=== PATIENT | female | born 1945 | race Two or more races ===

== ENCOUNTER 2019-08-28 09:01 | Inpatient (IN) | payer OTHER, MEDICAID ==
[2019-08-28] VITALS (38 sets, daily range): BP systolic 93–116; BP diastolic 49–82
[~2019-08-28] VITALS: Ht 152.4 cm; Wt 61.7 kg
[~2019-08-28 09:01] MED LIST: AMLO10TA80 PO; HYDROXYCHLOROQUINE PO; WARF2TAB57 PO; breo INH; levothyroxine PO; metoprolol PO
[2019-08-28] MEDS ORDERED: SODIUM CHLORIDE 0.9% 1,000 ML IV ONE (09:43)
[2019-08-28 09:51] LABS: HEMATOCRIT. 32.7 % (36.0-48.0); HEMOGLOBIN. 10.7 g/dL (12.0-16.0); MEAN CORPUSCULAR HEMOGLOBIN 31.2 pg (28.0-32.0); MEAN CORPUSCULAR VOLUME 95.1 fL (81.0-99.0); MEAN PLATELET VOLUME 8.3 fl (7.4-10.4); PLATELET 224 x1000/uL (130-400); RED BLOOD CELL COUNT 3.44 mill/uL (4.2-5.4); RED CELL DISTRIBUTION WIDTH 16.1 % (11.6-14.6)
[2019-08-28 10:26] LABS: PLATELET ESTIMATE NORMAL
[2019-08-28 10:29] LABS: CHLORIDE 97 mEq/L (98-107)
[2019-08-28 10:45] LABS: INR > 10.0
[2019-08-28] MEDS ORDERED: DILTIAZEM HCL 5MG/ML 5ML VIAL IV ONE (10:45)
[2019-08-28] MEDS ORDERED: DILTIAZEM HCL 120MG CAPSULE CD 24HR PO ONE (10:45)
[2019-08-28] MEDS ORDERED: ASPIRIN 81MG TABLET PO ONE (11:00)
[2019-08-28] MEDS ORDERED: LORAZEPAM 0.5MG TABLET PO PRN (11:30)
[2019-08-28] MEDS ORDERED: DILTIAZEM HCL 125 MG in DEXT 5% WATER 100 ML IV PRN (11:30)
[2019-08-28] MEDS ORDERED: ONDANSETRON HCL 4MG/2ML INJ IV PRN (11:30)
[2019-08-28] MEDS ORDERED: GUAIFENESIN 200MG/10ML SUGAR FREE UDC PO PRN (11:30)
[2019-08-28] MEDS ORDERED: DOCUSATE SODIUM 100MG CAPSULE PO PRN (11:30)
[2019-08-28] MEDS ORDERED: ACETAMINOPHEN 650MG SUPP PR PRN (11:30)
[2019-08-28] MEDS ORDERED: MAGNESIUM/ALUMINUM HYDROXIDE/SIMETHICONE 30ML UDC PO PRN (11:30)
[2019-08-28] MEDS ORDERED: CLONIDINE 0.1MG TABLET PO PRN (11:30)
[2019-08-28] MEDS ORDERED: ACETAMINOPHEN 325MG TABLET PO PRN (11:30)
[2019-08-28] MEDS ORDERED: PIPERACILLIN/TAZOBACTAM 2.25 G in DEXTROSE 5% WATER 50 ML IV SCH (12:00)
[2019-08-28] MEDS ORDERED: POTASSIUM CHLORIDE INJ 40 MEQ in DEXT 5% WATER 250 ML IV NR (12:00)
[2019-08-28 12:22] LABS: CLARITY URINE CLOUDY (CLEAR); COLOR URINE DARK YELLOW (YELLOW); KETONES URINE TRACE (NEGATIVE); LEUKOCYTE ESTERASE URINE 2+ (NEGATIVE); NITRITE URINE NEGATIVE (NEGATIVE); OCCULT BLOOD URINE NEGATIVE (NEGATIVE); PROTEIN URINE 2+ (NEGATIVE); SPECIFIC GRAVITY URINE 1.024 (1.005-1.030)
[2019-08-28] MEDS ORDERED: PHENYLEPHRINE 40 MG in DEXT 5% WATER 246 ML IV PRN (12:30)
[2019-08-28 12:41] LABS: *AMPHETAMINES SCREEN URINE NEGATIVE (NEGATIVE); *BARBITURATES SCREEN URINE NEGATIVE (NEGATIVE)
[2019-08-28 12:42] LABS: CANNABINOID URINE SCREEN NEGATIVE (NEGATIVE); METHADONE URINE SCREEN NEGATIVE (NEGATIVE); OPIATES URINE SCREEN NEGATIVE (NEGATIVE); PHENCYCLIDINE URINE SCREEN NEGATIVE (NEGATIVE)
[2019-08-28 12:44] LABS: *BENZODIAZEPINES SCREEN URINE NEGATIVE (NEGATIVE)
[2019-08-28 12:45] LABS: *COCAINE SCREEN URINE NEGATIVE (NEGATIVE)
[2019-08-28 13:14] LABS: INR > 10.0
[2019-08-28] MEDS ORDERED: PHYTONADIONE 10MG/ML AMP SUBCUT NR (13:15)
[2019-08-28] MEDS: PHENYLEPHRINE 40 MG in DEXT 5% WATER 246 ML IV PRN (13:24)
[2019-08-28 14:42] LABS: CREATINE KINASE 72 IU/L (26-192)
[2019-08-28 14:43] LABS: CREATINE KINASE MB FRACTION < 1.0 ng/mL (0.5-3.6)
[2019-08-28] MEDS ORDERED: VANCOMYCIN 1 G PREMIX 200 ML IV SCH (15:00)
[2019-08-28 17:13] LABS: BG BASE EXCESS -1.2 mmol/L (-2.0-2.0); BG CARBOXYHEMOGLOBIN 0.3 % (0.5-1.5); BG DEOXYHEMOGLOBIN 2.8 % (0.0-5.0); BG FRACTION INSPIRED OXYGEN 28; BG HCO3 ACT 22.5 mmol/L (22.0-26.0); BG METHEMOGLOBIN 0.8 % (0.0-1.5); BG OXYGEN SATURATION 97.2 % (92.0-98.5); BG OXYHEMOGLOBIN 96.1 % (94.0-97.0); BG PH 7.438 (7.350-7.450); BG PO2 97.3 mmHg (75.0-100.0); BG SAMPLE SITE RIGHT BRACHIAL; BG TOTAL HEMOGLOBIN 11.7 g/dL (12.0-18.0); BG VENT MODE NASAL CANNULA
[2019-08-28] MEDS: PIPERACILLIN/TAZOBACTAM 2.25 G in DEXTROSE 5% WATER 50 ML IV SCH (20:54)
[2019-08-28 22:09] LABS: CREATINE KINASE MB FRACTION 2.6 ng/mL (0.5-3.6)
[2019-08-28 22:48] LABS: INR 6.2
[2019-08-29] VITALS (99 sets, daily range): BP systolic 71–119; BP diastolic 24–79
[2019-08-29] MEDS: PIPERACILLIN/TAZOBACTAM 2.25 G in DEXTROSE 5% WATER 50 ML IV SCH ×3 (03:55→20:37)
[2019-08-29] MEDS ORDERED: MIDODRINE HCL 2.5MG TABLET PO SCH (04:45)
[2019-08-29 05:40] LABS: HEMATOCRIT. 32.7 % (36.0-48.0); HEMOGLOBIN. 10.7 g/dL (12.0-16.0); MEAN CORPUSCULAR HEMOGLOBIN 31.5 pg (28.0-32.0); MEAN CORPUSCULAR VOLUME 96.4 fL (81.0-99.0); MEAN PLATELET VOLUME 8.5 fl (7.4-10.4); PLATELET 195 x1000/uL (130-400); RED CELL DISTRIBUTION WIDTH 16.1 % (11.6-14.6)
[2019-08-29 05:43] LABS: CHLORIDE 98 mEq/L (98-107)
[2019-08-29 05:47] LABS: TOTAL IRON BINDING CAPACITY 267 ug/dL (250-450)
[2019-08-29 05:49] LABS: T4 FREE 1.11 ng/dL (0.76-1.46)
[2019-08-29 05:51] LABS: LDL CHOLESTEROL 23 mg/dL (5-100)
[2019-08-29 05:52] LABS: HDL CHOLESTEROL 24 mg/dL (40-59)
[2019-08-29 06:23] LABS: VITAMIN B12 SERUM 1535 pg/mL (211-911)
[2019-08-29] MEDS: PHENYLEPHRINE 40 MG in DEXT 5% WATER 246 ML IV PRN ×2 (06:41→21:38)
[2019-08-29 07:34] LABS: INR 5.3
[2019-08-29] MEDS: LEVOTHYROXINE SODIUM 50MCG TABLET PO SCH (09:20)
[2019-08-29] MEDS: PANTOPRAZOLE SODIUM 40 MG/VIAL IV SCH (09:20)
[2019-08-29 12:11] LABS: NUCLEATED RED BLOOD CELLS 1 /100 WBC
[2019-08-29 12:12] LABS: PLATELET ESTIMATE NORMAL
[2019-08-29] MEDS: MIDODRINE HCL 5MG TABLET PO SCH ×2 (13:26→18:04)
[2019-08-29] MEDS ORDERED: VANCOMYCIN 1250MG in DEXTROSE 5% WATER 250ML IV SCH (14:00)
[2019-08-29 16:06] LABS: PROTHROMBIN TIME 49.9 sec (9.6-11.0)
[2019-08-29 16:17] LABS: INR 5.2
[2019-08-29] MEDS ORDERED: ALBUMIN HUMAN 12.5G/250ML (5%) IV NR (17:30)
[2019-08-29] MEDS: HYDROCODONE/ACETAMINOPHEN 5/325MG TABLET PO PRN (18:06)
[2019-08-30] VITALS (75 sets, daily range): BP systolic 82–123; BP diastolic 45–72
[2019-08-30] MEDS: PIPERACILLIN/TAZOBACTAM 2.25 G in DEXTROSE 5% WATER 50 ML IV SCH ×2 (04:35→12:39)
[2019-08-30 06:04] LABS: BASOPHILS % 0.6 % (0.0-2.0); HEMATOCRIT. 30.8 % (36.0-48.0); HEMOGLOBIN. 10.2 g/dL (12.0-16.0); LYMPHOCYTES % 7.1 % (20.0-50.0); MEAN CORPUSCULAR HEMOGLOBIN 31.4 pg (28.0-32.0); MEAN CORPUSCULAR VOLUME 94.9 fL (81.0-99.0); MEAN PLATELET VOLUME 8.5 fl (7.4-10.4); MONOCYTES % 8.7 % (2.0-8.0); NEUTROPHILS % 82.6 % (40.0-76.0); PLATELET 174 x1000/uL (130-400); RED BLOOD CELL COUNT 3.25 mill/uL (4.2-5.4); RED CELL DISTRIBUTION WIDTH 16.1 % (11.6-14.6)
[2019-08-30 06:17] LABS: CHLORIDE 106 mEq/L (98-107)
[2019-08-30 07:12] LABS: PROTHROMBIN TIME 41.2 sec (9.6-11.0)
[2019-08-30 07:19] LABS: INR 4.2
[2019-08-30] MEDS: MIDODRINE HCL 5MG TABLET PO SCH ×3 (08:30→17:09)
[2019-08-30] MEDS: PANTOPRAZOLE SODIUM 40 MG/VIAL IV SCH (08:30)
[2019-08-30] MEDS: LEVOTHYROXINE SODIUM 50MCG TABLET PO SCH (08:30)
[2019-08-30] MEDS ORDERED: PHYTONADIONE 10MG/ML AMP SUBCUT NR (14:15)
[2019-08-31] VITALS (96 sets, daily range): BP systolic 90–148; BP diastolic 29–93
[2019-08-31] MEDS ORDERED: DILTIAZEM HCL 5MG/ML 5ML VIAL IV NR ×2 (00:15→16:00)
[2019-08-31] MEDS: DILTIAZEM HCL 125 MG in DEXT 5% WATER 100 ML IV PRN ×2 (00:26→14:46)
[2019-08-31] MEDS: HYDROCODONE/ACETAMINOPHEN 5/325MG TABLET PO PRN ×2 (01:20→23:29)
[2019-08-31 02:03] LABS: INR 2.1; PROTHROMBIN TIME 20.9 sec (9.6-11.0)
[2019-08-31 06:48] LABS: HEMATOCRIT 29.7 % (36.0-48.0); HEMOGLOBIN 9.8 g/dL (12.0-16.0); MEAN CORPUSCULAR HEMOGLOBIN 31.1 pg (28.0-32.0); MEAN CORPUSCULAR VOLUME 94.7 fL (81.0-99.0); PLATELET 173 x1000/uL (130-400); RED BLOOD CELL COUNT 3.14 mill/uL (4.2-5.4); RED CELL DISTRIBUTION WIDTH 16.5 % (11.6-14.6)
[2019-08-31 06:59] LABS: PROTHROMBIN TIME 20.1 sec (9.6-11.0)
[2019-08-31] MEDS: LEVOTHYROXINE SODIUM 50MCG TABLET PO SCH (08:53)
[2019-08-31] MEDS: MIDODRINE HCL 5MG TABLET PO SCH ×3 (08:54→16:36)
[2019-08-31] MEDS: PANTOPRAZOLE SODIUM 40 MG/VIAL IV SCH (08:54)
[2019-08-31] MEDS ORDERED: DILTIAZEM HCL 30MG TABLET PO SCH (12:30)
[2019-08-31 15:50] LABS: INR 1.7; PROTHROMBIN TIME 17.1 sec (9.6-11.0)
[2019-08-31] MEDS ORDERED: DIGOXIN 500MCG/2ML AMP IV NR (16:30)
[2019-08-31] MEDS: FERROUS SULFATE 325MG TABLET PO SCH (16:35)
[2019-08-31] MEDS: CEFAZOLIN 2,000 MG in DEXT 5% WATER 100 ML IV SCH (16:35)
[2019-08-31] MEDS ORDERED: VANCOMYCIN 1 G PREMIX 200 ML IV NR (18:00)
[2019-08-31] MEDS ORDERED: WARFARIN SODIUM 2MG TABLET PO SCH (18:00)
[2019-08-31 18:24] LABS: BG BASE EXCESS -4.3 mmol/L (-2.0-2.0); BG CARBOXYHEMOGLOBIN 0.2 % (0.5-1.5); BG DEOXYHEMOGLOBIN 15.9 % (0.0-5.0); BG FRACTION INSPIRED OXYGEN 30; BG HCO3 ACT 19.4 mmol/L (22.0-26.0); BG METHEMOGLOBIN 0.4 % (0.0-1.5); BG OXYHEMOGLOBIN 83.5 % (94.0-97.0); BG PCO2 31.3 mmHg (35.0-45.0); BG PO2 49.8 mmHg (75.0-100.0); BG SAMPLE SITE RIGHT BRACHIAL; BG TOTAL HEMOGLOBIN 11.5 g/dL (12.0-18.0); BG VENT MODE NASAL CANNULA
[2019-08-31 19:53] LABS: BG BASE EXCESS -7.7 mmol/L (-2.0-2.0); BG BILEVEL POS AIRWAY PRESSURE 15/5; BG CARBOXYHEMOGLOBIN 0.3 % (0.5-1.5); BG DEOXYHEMOGLOBIN 1.5 % (0.0-5.0); BG FRACTION INSPIRED OXYGEN 100; BG HCO3 ACT 15.4 mmol/L (22.0-26.0); BG METHEMOGLOBIN 0.3 % (0.0-1.5); BG OXYGEN SATURATION 98.5 % (92.0-98.5); BG OXYHEMOGLOBIN 97.9 % (94.0-97.0); BG PCO2 24.5 mmHg (35.0-45.0); BG PH 7.416 (7.350-7.450); BG SAMPLE SITE RIGHT RADIAL; BG TOTAL HEMOGLOBIN 10.8 g/dL (12.0-18.0); BG VENT MODE MASK - BIPAP; BG VENT RATE 16 set
[2019-08-31] MEDS: DILTIAZEM HCL 60MG TABLET PO SCH (22:00)
[2019-09-01] VITALS (81 sets, daily range): BP systolic 98–132; BP diastolic 37–97
[2019-09-01] MEDS: DILTIAZEM HCL 125 MG in DEXT 5% WATER 100 ML IV PRN ×2 (00:12→14:43)
[2019-09-01] MEDS ORDERED: PHYTONADIONE 10MG/ML AMP SUBCUT ONE (02:00)
[2019-09-01] MEDS ORDERED: PHYTONADIONE 10MG/ML AMP IM ONE (02:00)
[2019-09-01 06:37] LABS: HEMATOCRIT. 32.9 % (36.0-48.0); HEMOGLOBIN. 10.4 g/dL (12.0-16.0); MEAN CORPUSCULAR HEMOGLOBIN 31.3 pg (28.0-32.0); MEAN CORPUSCULAR VOLUME 98.9 fL (81.0-99.0); MEAN PLATELET VOLUME 9.1 fl (7.4-10.4); PLATELET 193 x1000/uL (130-400); RED BLOOD CELL COUNT 3.33 mill/uL (4.2-5.4); RED CELL DISTRIBUTION WIDTH 16.8 % (11.6-14.6)
[2019-09-01 06:38] LABS: PROTHROMBIN TIME 20.3 sec (9.6-11.0)
[2019-09-01] MEDS: DILTIAZEM HCL 60MG TABLET PO SCH (06:49)
[2019-09-01 07:37] LABS: BG BASE EXCESS -13.3 mmol/L (-2.0-2.0); BG CARBOXYHEMOGLOBIN 0.5 % (0.5-1.5); BG DEOXYHEMOGLOBIN 5.4 % (0.0-5.0); BG FRACTION INSPIRED OXYGEN 100; BG HCO3 ACT 12.4 mmol/L (22.0-26.0); BG METHEMOGLOBIN 0.3 % (0.0-1.5); BG OXYGEN SATURATION 94.6 % (92.0-98.5); BG OXYHEMOGLOBIN 93.8 % (94.0-97.0); BG PCO2 28.1 mmHg (35.0-45.0); BG PH 7.262 (7.350-7.450); BG PO2 83.1 mmHg (75.0-100.0); BG SAMPLE SITE RIGHT BRACHIAL; BG TOTAL HEMOGLOBIN 10.8 g/dL (12.0-18.0); BG VENT MODE MASK - NRB
[2019-09-01] MEDS: LEVOTHYROXINE SODIUM 50MCG TABLET PO SCH (09:41)
[2019-09-01] MEDS: MIDODRINE HCL 5MG TABLET PO SCH ×3 (09:41→17:39)
[2019-09-01] MEDS: FERROUS SULFATE 325MG TABLET PO SCH ×2 (09:41→17:38)
[2019-09-01] MEDS: PANTOPRAZOLE SODIUM 40 MG/VIAL IV SCH (09:41)
[2019-09-01] MEDS ORDERED: SODIUM BICARBONATE 8.4% 1 MEQ/ML 50ML SYR IV SCH (10:00)
[2019-09-01] MEDS ORDERED: NEBIVOLOL HCL 5 MG TABLET PO SCH (10:00)
[2019-09-01] MEDS ORDERED: SODIUM BICARBONATE 8.4% 1 MEQ/ML 50ML SYR IV ONE (10:11)
[2019-09-01 11:09] LABS: PLATELET ESTIMATE NORMAL
[2019-09-01] MEDS ORDERED: LIDOCAINE HCL 1% 20ML VIAL (Pyxis) INJ ONE ×2 (11:34→14:38)
[2019-09-01] MEDS: DILTIAZEM HCL 90MG TABLET PO SCH ×3 (13:47→22:11)
[2019-09-01] MEDS ORDERED: DILTIAZEM HCL 90MG TABLET PO SCH (14:00)
[2019-09-01] MEDS ORDERED: DILTIAZEM HCL 60MG TABLET PO SCH (14:00)
[2019-09-01 15:50] LABS: BG BILEVEL POS AIRWAY PRESSURE 16/5; BG CARBOXYHEMOGLOBIN 0.3 % (0.5-1.5); BG DEOXYHEMOGLOBIN 1.3 % (0.0-5.0); BG FRACTION INSPIRED OXYGEN 100; BG HCO3 ACT 24.2 mmol/L (22.0-26.0); BG METHEMOGLOBIN 0.3 % (0.0-1.5); BG OXYGEN SATURATION 98.7 % (92.0-98.5); BG OXYHEMOGLOBIN 98.1 % (94.0-97.0); BG PCO2 33.5 mmHg (35.0-45.0); BG PH 7.477 (7.350-7.450); BG PO2 134.9 mmHg (75.0-100.0); BG SAMPLE SITE RIGHT BRACHIAL; BG TOTAL HEMOGLOBIN 10.7 g/dL (12.0-18.0); BG VENT MODE MASK - BIPAP
[2019-09-01] MEDS: CEFAZOLIN 2,000 MG in DEXT 5% WATER 100 ML IV SCH (16:46)
[2019-09-02] VITALS (73 sets, daily range): BP systolic 103–145; BP diastolic 40–80
[2019-09-02] MEDS: DILTIAZEM HCL 90MG TABLET PO SCH ×3 (05:59→21:08)
[2019-09-02 06:47] LABS: HEMATOCRIT 30.5 % (36.0-48.0); HEMOGLOBIN 9.8 g/dL (12.0-16.0); INR 1.7; MEAN CORPUSCULAR HEMOGLOBIN 30.6 pg (28.0-32.0); MEAN CORPUSCULAR VOLUME 95.1 fL (81.0-99.0); PLATELET 174 x1000/uL (130-400); PROTHROMBIN TIME 17.2 sec (9.6-11.0); RED BLOOD CELL COUNT 3.21 mill/uL (4.2-5.4); RED CELL DISTRIBUTION WIDTH 16.8 % (11.6-14.6)
[2019-09-02] MEDS: IPRATROPIUM/ALBUTEROL 0.5-3(2.5)MG/3ML NEB NEB PRN ×2 (08:11→12:57)
[2019-09-02] MEDS: MIDODRINE HCL 5MG TABLET PO SCH ×3 (08:43→16:53)
[2019-09-02] MEDS: FERROUS SULFATE 325MG TABLET PO SCH ×2 (08:43→16:53)
[2019-09-02] MEDS: PANTOPRAZOLE SODIUM 40 MG/VIAL IV SCH (08:43)
[2019-09-02] MEDS: LEVOTHYROXINE SODIUM 50MCG TABLET PO SCH (08:43)
[2019-09-02] MEDS ORDERED: NEBIVOLOL HCL 5 MG TABLET PO SCH (10:00)
[2019-09-02] MEDS ORDERED: WARFARIN SODIUM 5MG TABLET PO ONE (16:30)
[2019-09-02] MEDS ORDERED: NEBIVOLOL HCL 5 MG TABLET PO NR (16:45)
[2019-09-02] MEDS: CEFAZOLIN 2,000 MG in DEXT 5% WATER 100 ML IV SCH (16:53)
[2019-09-02 17:08] LABS: BG BASE EXCESS -2.8 mmol/L (-2.0-2.0); BG BILEVEL POS AIRWAY PRESSURE 15/5; BG CARBOXYHEMOGLOBIN 0.3 % (0.5-1.5); BG DEOXYHEMOGLOBIN 1.1 % (0.0-5.0); BG FRACTION INSPIRED OXYGEN 90; BG HCO3 ACT 20.6 mmol/L (22.0-26.0); BG OXYGEN SATURATION 98.9 % (92.0-98.5); BG OXYHEMOGLOBIN 98.6 % (94.0-97.0); BG PCO2 31.1 mmHg (35.0-45.0); BG PH 7.438 (7.350-7.450); BG PO2 153.4 mmHg (75.0-100.0); BG SAMPLE SITE LEFT RADIAL; BG TOTAL HEMOGLOBIN 11.3 g/dL (12.0-18.0); BG VENT MODE MASK - BIPAP; BG VENT RATE 16 set
[2019-09-02] MEDS ORDERED: ENOXAPARIN 40MG/0.4ML SYR SUBCUT SCH (18:00)
[2019-09-03] VITALS (54 sets, daily range): BP systolic 89–143; BP diastolic 40–84
[2019-09-03] MEDS ORDERED: ESMOLOL 2500MG PREMIX 250 ML IV PRN (01:45)
[2019-09-03] MEDS: DILTIAZEM HCL 90MG TABLET PO SCH ×3 (05:47→22:14)
[2019-09-03 07:01] LABS: HEMATOCRIT. 30.2 % (36.0-48.0); HEMOGLOBIN. 9.7 g/dL (12.0-16.0); MEAN CORPUSCULAR VOLUME 96.3 fL (81.0-99.0); MEAN PLATELET VOLUME 8.9 fl (7.4-10.4); PLATELET 145 x1000/uL (130-400); RED BLOOD CELL COUNT 3.14 mill/uL (4.2-5.4); RED CELL DISTRIBUTION WIDTH 16.6 % (11.6-14.6)
[2019-09-03 07:07] LABS: INR 1.8; PROTHROMBIN TIME 19.4 sec (9.6-11.0)
[2019-09-03] MEDS: IPRATROPIUM/ALBUTEROL 0.5-3(2.5)MG/3ML NEB NEB PRN ×2 (08:12→12:40)
[2019-09-03] MEDS: FERROUS SULFATE 325MG TABLET PO SCH ×2 (08:52→17:30)
[2019-09-03] MEDS: LEVOTHYROXINE SODIUM 50MCG TABLET PO SCH (08:52)
[2019-09-03] MEDS: PANTOPRAZOLE SODIUM 40 MG/VIAL IV SCH (08:54)
[2019-09-03] MEDS: MIDODRINE HCL 5MG TABLET PO SCH ×3 (08:54→17:31)
[2019-09-03] MEDS: NEBIVOLOL HCL 5 MG TABLET PO SCH (09:00)
[2019-09-03 09:41] LABS: PLATELET ESTIMATE NORMAL
[2019-09-03] MEDS ORDERED: DIGOXIN 500MCG/2ML AMP IV NR (10:45)
[2019-09-03] MEDS: CEFAZOLIN 2,000 MG in DEXT 5% WATER 100 ML IV SCH (15:03)
[2019-09-03 15:12] LABS: BG BASE EXCESS -5.2 mmol/L (-2.0-2.0); BG BILEVEL POS AIRWAY PRESSURE 15/5; BG CARBOXYHEMOGLOBIN 0.2 % (0.5-1.5); BG DEOXYHEMOGLOBIN 7.2 % (0.0-5.0); BG FRACTION INSPIRED OXYGEN 70; BG METHEMOGLOBIN 0.3 % (0.0-1.5); BG OXYGEN SATURATION 92.8 % (92.0-98.5); BG OXYHEMOGLOBIN 92.3 % (94.0-97.0); BG PCO2 31.4 mmHg (35.0-45.0); BG PO2 70.1 mmHg (75.0-100.0); BG SAMPLE SITE RIGHT RADIAL; BG TOTAL HEMOGLOBIN 7.8 g/dL (12.0-18.0); BG VENT MODE MASK - BIPAP; BG VENT RATE 16 set
[2019-09-03] MEDS ORDERED: NEBIVOLOL HCL 5 MG TABLET PO NR (16:45)
[2019-09-03] MEDS: ENOXAPARIN 60MG/0.6ML SYR SUBCUT SCH (18:09)
[2019-09-04] VITALS (60 sets, daily range): BP systolic 88–130; BP diastolic 35–77
[2019-09-04] MEDS ORDERED: LORAZEPAM 2MG/ML CPJ IV PRN (01:00)
[2019-09-04 05:58] LABS: HEMATOCRIT. 34.4 % (36.0-48.0); HEMOGLOBIN. 10.8 g/dL (12.0-16.0); MEAN CORPUSCULAR HEMOGLOBIN 30.5 pg (28.0-32.0); MEAN CORPUSCULAR VOLUME 97.3 fL (81.0-99.0); MEAN PLATELET VOLUME 9.3 fl (7.4-10.4); PLATELET 136 x1000/uL (130-400); RED BLOOD CELL COUNT 3.53 mill/uL (4.2-5.4)
[2019-09-04] MEDS: DILTIAZEM HCL 90MG TABLET PO SCH ×4 (06:00→22:08)
[2019-09-04 06:33] LABS: DIGOXIN 1.8 ng/mL (0.9-2.0)
[2019-09-04] MEDS: LEVOTHYROXINE SODIUM 50MCG TABLET PO SCH ×2 (07:50→09:35)
[2019-09-04 08:32] LABS: BG BASE EXCESS -0.9 mmol/L (-2.0-2.0); BG BILEVEL POS AIRWAY PRESSURE 15/5; BG CARBOXYHEMOGLOBIN 0.3 % (0.5-1.5); BG DEOXYHEMOGLOBIN 0.7 % (0.0-5.0); BG FRACTION INSPIRED OXYGEN 80; BG HCO3 ACT 21.7 mmol/L (22.0-26.0); BG METHEMOGLOBIN 0.3 % (0.0-1.5); BG OXYGEN SATURATION 99.3 % (92.0-98.5); BG OXYHEMOGLOBIN 98.7 % (94.0-97.0); BG PCO2 29.2 mmHg (35.0-45.0); BG PH 7.488 (7.350-7.450); BG PO2 173.9 mmHg (75.0-100.0); BG SAMPLE SITE RIGHT RADIAL; BG TOTAL HEMOGLOBIN 11.5 g/dL (12.0-18.0); BG VENT MODE MASK - BIPAP; BG VENT RATE 16 set
[2019-09-04 08:55] LABS: NUCLEATED RED BLOOD CELLS 1 /100 WBC; PLATELET ESTIMATE NORMAL
[2019-09-04] MEDS: MIDODRINE HCL 5MG TABLET PO SCH ×4 (09:00→17:18)
[2019-09-04] MEDS: FERROUS SULFATE 325MG TABLET PO SCH ×3 (09:00→17:14)
[2019-09-04] MEDS: NEBIVOLOL HCL 5 MG TABLET PO SCH (09:00)
[2019-09-04] MEDS: PANTOPRAZOLE SODIUM 40 MG/VIAL IV SCH (09:35)
[2019-09-04] MEDS ORDERED: METHYLPREDNISOLONE SOD SUCC 40 MG/ML VIAL IV NR (10:00)
[2019-09-04] MEDS ORDERED: DEXTROSE 50% WATER 50ML SYRINGE IV PRN (11:45)
[2019-09-04] MEDS: DEXT 5%/0.45% NACL 1000ML 1,000 ML IV SCH (12:50)
[2019-09-04 13:00] LABS: BG BASE EXCESS -4.9 mmol/L (-2.0-2.0); BG BILEVEL POS AIRWAY PRESSURE 15/5; BG CARBOXYHEMOGLOBIN 0.6 % (0.5-1.5); BG DEOXYHEMOGLOBIN 5.7 % (0.0-5.0); BG FRACTION INSPIRED OXYGEN 60; BG HCO3 ACT 18.4 mmol/L (22.0-26.0); BG METHEMOGLOBIN 0.2 % (0.0-1.5); BG OXYGEN SATURATION 94.3 % (92.0-98.5); BG OXYHEMOGLOBIN 93.5 % (94.0-97.0); BG PCO2 28.9 mmHg (35.0-45.0); BG PH 7.422 (7.350-7.450); BG PO2 74.4 mmHg (75.0-100.0); BG SAMPLE SITE LEFT RADIAL; BG VENT MODE MASK - BIPAP; BG VENT RATE 16 set
[2019-09-04] MEDS: PHENYLEPHRINE 40 MG in DEXT 5% WATER 246 ML IV PRN (15:11)
[2019-09-04] MEDS: BLOOD SUGAR DIAGNOSTIC STRIP TEST SCH ×2 (16:15→22:08)
[2019-09-04 17:00] LABS: BG BASE EXCESS -3.5 mmol/L (-2.0-2.0); BG BILEVEL POS AIRWAY PRESSURE 15/5; BG CARBOXYHEMOGLOBIN 0.9 % (0.5-1.5); BG DEOXYHEMOGLOBIN 5.5 % (0.0-5.0); BG FRACTION INSPIRED OXYGEN 60; BG METHEMOGLOBIN 0.1 % (0.0-1.5); BG OXYGEN SATURATION 94.4 % (92.0-98.5); BG OXYHEMOGLOBIN 93.5 % (94.0-97.0); BG PCO2 27.3 mmHg (35.0-45.0); BG PH 7.461 (7.350-7.450); BG SAMPLE SITE LEFT RADIAL; BG TOTAL HEMOGLOBIN 12.7 g/dL (12.0-18.0); BG VENT MODE MASK - BIPAP; BG VENT RATE 16 set
[2019-09-04] MEDS: ENOXAPARIN 60MG/0.6ML SYR SUBCUT SCH (17:14)
[2019-09-04] MEDS: CEFAZOLIN 2,000 MG in DEXT 5% WATER 100 ML IV SCH (18:14)
[2019-09-04 20:38] LABS: BG BASE EXCESS -4.4 mmol/L (-2.0-2.0); BG BILEVEL POS AIRWAY PRESSURE 15/5; BG CARBOXYHEMOGLOBIN 0.4 % (0.5-1.5); BG DEOXYHEMOGLOBIN 5.7 % (0.0-5.0); BG FRACTION INSPIRED OXYGEN 60; BG HCO3 ACT 18.1 mmol/L (22.0-26.0); BG METHEMOGLOBIN 0.2 % (0.0-1.5); BG OXYGEN SATURATION 94.3 % (92.0-98.5); BG OXYHEMOGLOBIN 93.7 % (94.0-97.0); BG PCO2 26.3 mmHg (35.0-45.0); BG PH 7.456 (7.350-7.450); BG PO2 73.3 mmHg (75.0-100.0); BG SAMPLE SITE RIGHT RADIAL; BG TOTAL HEMOGLOBIN 12.1 g/dL (12.0-18.0); BG VENT MODE MASK - BIPAP; BG VENT RATE 16 set
[2019-09-05] VITALS (36 sets, daily range): BP systolic 87–135; BP diastolic 37–78
[2019-09-05] MEDS: BLOOD SUGAR DIAGNOSTIC STRIP TEST SCH ×3 (05:03→16:15)
[2019-09-05] MEDS: DILTIAZEM HCL 90MG TABLET PO SCH ×3 (05:20→22:40)
[2019-09-05 06:57] LABS: HEMOGLOBIN. 12.3 g/dL (12.0-16.0); MEAN CORPUSCULAR HEMOGLOBIN 30.2 pg (28.0-32.0); MEAN CORPUSCULAR VOLUME 96.2 fL (81.0-99.0); MEAN PLATELET VOLUME 9.2 fl (7.4-10.4); PLATELET 159 x1000/uL (130-400); RED BLOOD CELL COUNT 4.05 mill/uL (4.2-5.4); RED CELL DISTRIBUTION WIDTH 17.8 % (11.6-14.6)
[2019-09-05] MEDS: NEBIVOLOL HCL 5 MG TABLET PO SCH (08:10)
[2019-09-05] MEDS: MIDODRINE HCL 5MG TABLET PO SCH ×3 (08:17→17:42)
[2019-09-05] MEDS: LEVOTHYROXINE SODIUM 50MCG TABLET PO SCH (08:17)
[2019-09-05] MEDS: FERROUS SULFATE 325MG TABLET PO SCH ×2 (08:17→17:42)
[2019-09-05] MEDS: PANTOPRAZOLE SODIUM 40 MG/VIAL IV SCH (08:17)
[2019-09-05 08:59] LABS: BG BASE EXCESS -5.1 mmol/L (-2.0-2.0); BG BILEVEL POS AIRWAY PRESSURE 15/5; BG CARBOXYHEMOGLOBIN 0.8 % (0.5-1.5); BG DEOXYHEMOGLOBIN 2.7 % (0.0-5.0); BG FRACTION INSPIRED OXYGEN 65; BG HCO3 ACT 17.2 mmol/L (22.0-26.0); BG METHEMOGLOBIN 0.2 % (0.0-1.5); BG OXYGEN SATURATION 97.3 % (92.0-98.5); BG OXYHEMOGLOBIN 96.3 % (94.0-97.0); BG PCO2 25.3 mmHg (35.0-45.0); BG PH 7.451 (7.350-7.450); BG SAMPLE SITE LEFT RADIAL; BG TOTAL HEMOGLOBIN 13.2 g/dL (12.0-18.0); BG VENT MODE MASK - BIPAP; BG VENT RATE 16 set
[2019-09-05 10:06] LABS: PLATELET ESTIMATE NORMAL
[2019-09-05] MEDS: CEFAZOLIN 2,000 MG in DEXT 5% WATER 100 ML IV SCH (16:41)
[2019-09-05] MEDS: ENOXAPARIN 60MG/0.6ML SYR SUBCUT SCH (17:45)
[2019-09-06] VITALS (30 sets, daily range): BP systolic 101–126; BP diastolic 36–82
[2019-09-06] MEDS: DEXT 5%/0.45% NACL 1000ML 1,000 ML IV SCH ×2 (00:06→11:58)
[2019-09-06] MEDS: DILTIAZEM HCL 90MG TABLET PO SCH ×4 (06:00→23:49)
[2019-09-06] MEDS ORDERED: DEXTROSE 50% WATER 50ML SYRINGE IV PRN (06:00)
[2019-09-06] MEDS: BLOOD SUGAR DIAGNOSTIC STRIP TEST SCH ×4 (06:00→23:44)
[2019-09-06] MEDS: PANTOPRAZOLE SODIUM 40 MG/VIAL IV SCH (09:01)
[2019-09-06] MEDS: FERROUS SULFATE 325MG TABLET PO SCH ×2 (09:01→17:11)
[2019-09-06] MEDS: NEBIVOLOL HCL 5 MG TABLET PO SCH (09:01)
[2019-09-06] MEDS: MIDODRINE HCL 5MG TABLET PO SCH ×3 (09:01→17:11)
[2019-09-06] MEDS: LEVOTHYROXINE SODIUM 50MCG TABLET PO SCH (09:01)
[2019-09-06 09:42] LABS: HEMATOCRIT. 37.1 % (36.0-48.0); HEMOGLOBIN. 11.6 g/dL (12.0-16.0); MEAN CORPUSCULAR HEMOGLOBIN 30.3 pg (28.0-32.0); MEAN PLATELET VOLUME 9.2 fl (7.4-10.4); PLATELET 144 x1000/uL (130-400); RED BLOOD CELL COUNT 3.82 mill/uL (4.2-5.4); RED CELL DISTRIBUTION WIDTH 18.1 % (11.6-14.6)
[2019-09-06 10:23] LABS: PLATELET ESTIMATE NORMAL
[2019-09-06] MEDS: CEFAZOLIN 2,000 MG in DEXT 5% WATER 100 ML IV SCH (16:25)
[2019-09-06] MEDS: ENOXAPARIN 60MG/0.6ML SYR SUBCUT SCH (17:12)
[2019-09-07] VITALS (78 sets, daily range): BP systolic 43–122; BP diastolic 20–71
[2019-09-07 01:06] LABS: BG BASE EXCESS -3.4 mmol/L (-2.0-2.0); BG BILEVEL POS AIRWAY PRESSURE 18/7; BG CARBOXYHEMOGLOBIN 0.2 % (0.5-1.5); BG DEOXYHEMOGLOBIN 22.4 % (0.0-5.0); BG FRACTION INSPIRED OXYGEN 100; BG HCO3 ACT 21.9 mmol/L (22.0-26.0); BG METHEMOGLOBIN 0.4 % (0.0-1.5); BG OXYGEN SATURATION 77.5 % (92.0-98.5); BG PCO2 40.3 mmHg (35.0-45.0); BG PH 7.353 (7.350-7.450); BG PO2 46.3 mmHg (75.0-100.0); BG SAMPLE SITE RIGHT BRACHIAL; BG TOTAL HEMOGLOBIN 12.6 g/dL (12.0-18.0); BG VENT MODE MASK - BIPAP
[2019-09-07] MEDS: IPRATROPIUM/ALBUTEROL 0.5-3(2.5)MG/3ML NEB NEB PRN (01:19)
[2019-09-07] MEDS ORDERED: FUROSEMIDE 100MG/10ML VIAL IVP NR (01:30)
[2019-09-07 02:05] LABS: BG BASE EXCESS -3.3 mmol/L (-2.0-2.0); BG BILEVEL POS AIRWAY PRESSURE 15/5; BG CARBOXYHEMOGLOBIN 0.4 % (0.5-1.5); BG DEOXYHEMOGLOBIN 18.2 % (0.0-5.0); BG FRACTION INSPIRED OXYGEN 100; BG HCO3 ACT 22.1 mmol/L (22.0-26.0); BG METHEMOGLOBIN 0.1 % (0.0-1.5); BG OXYGEN SATURATION 81.7 % (92.0-98.5); BG OXYHEMOGLOBIN 81.3 % (94.0-97.0); BG PCO2 41.1 mmHg (35.0-45.0); BG PH 7.349 (7.350-7.450); BG PO2 50.7 mmHg (75.0-100.0); BG SAMPLE SITE RIGHT RADIAL; BG TOTAL HEMOGLOBIN 12.7 g/dL (12.0-18.0); BG VENT MODE MASK - BIPAP; BG VENT RATE 16 set
[2019-09-07] MEDS ORDERED: ETOMIDATE 2MG/ML 10ML VIAL IV ONE (02:55)
[2019-09-07] MEDS ORDERED: SUCCINYLCHOLINE CHLORIDE 200MG/10ML IV ONE (02:55)
[2019-09-07] MEDS: LORAZEPAM 2MG/ML CPJ IV PRN ×2 (03:23→08:44)
[2019-09-07] MEDS: DEXT 5%/0.45% NACL 1000ML 1,000 ML IV SCH (03:29)
[2019-09-07] MEDS: PHENYLEPHRINE 40 MG in DEXT 5% WATER 246 ML IV PRN ×3 (03:44→11:29)
[2019-09-07 04:15] LABS: BG BASE EXCESS -6.4 mmol/L (-2.0-2.0); BG DEOXYHEMOGLOBIN 19.4 % (0.0-5.0); BG FRACTION INSPIRED OXYGEN 100; BG HCO3 ACT 20.2 mmol/L (22.0-26.0); BG METHEMOGLOBIN 0.3 % (0.0-1.5); BG OXYGEN SATURATION 80.3 % (92.0-98.5); BG OXYHEMOGLOBIN 79.3 % (94.0-97.0); BG PCO2 44.2 mmHg (35.0-45.0); BG PH 7.278 (7.350-7.450); BG PO2 52.1 mmHg (75.0-100.0); BG SAMPLE SITE RIGHT RADIAL; BG TIDAL VOLUME(mL) 500 mL; BG TOTAL HEMOGLOBIN 13.6 g/dL (12.0-18.0); BG VENT MODE VENT - A/C; BG VENT RATE 14 set
[2019-09-07] MEDS ORDERED: NOREPINEPHRINE 32 MG in DEXT 5% WATER 468 ML IV PRN (05:45)
[2019-09-07] MEDS: BLOOD SUGAR DIAGNOSTIC STRIP TEST SCH (05:50)
[2019-09-07] MEDS: DILTIAZEM HCL 90MG TABLET PO SCH (05:50)
[2019-09-07] MEDS: LEVOTHYROXINE SODIUM 50MCG TABLET PO SCH (05:50)
[2019-09-07 05:51] LABS: HEMATOCRIT. 41.6 % (36.0-48.0); HEMOGLOBIN. 12.7 g/dL (12.0-16.0); MEAN CORPUSCULAR HEMOGLOBIN 30.7 pg (28.0-32.0); MEAN CORPUSCULAR VOLUME 100.4 fL (81.0-99.0); MEAN PLATELET VOLUME 9.3 fl (7.4-10.4); PLATELET 131 x1000/uL (130-400); RED BLOOD CELL COUNT 4.14 mill/uL (4.2-5.4); RED CELL DISTRIBUTION WIDTH 19.2 % (11.6-14.6)
[2019-09-07] MEDS ORDERED: PIPERACILLIN/TAZOBACTAM 2.25 G in DEXTROSE 5% WATER 50 ML IV SCH ×2 (06:00→10:30)
[2019-09-07] MEDS ORDERED: DIGOXIN 500MCG/2ML AMP IV ONE (08:30)
[2019-09-07] MEDS: PANTOPRAZOLE SODIUM 40 MG/VIAL IV SCH (08:44)
[2019-09-07] MEDS: MIDODRINE HCL 5MG TABLET PO SCH (08:55)
[2019-09-07] MEDS: FERROUS SULFATE 325MG TABLET PO SCH (08:55)
[2019-09-07] MEDS: NEBIVOLOL HCL 5 MG TABLET PO SCH (09:00)
[2019-09-07] MEDS ORDERED: SODIUM BICARBONATE 8.4% 1 MEQ/ML 50ML SYR IV SCH (09:30)
[2019-09-07 09:36] LABS: NUCLEATED RED BLOOD CELLS 1 /100 WBC; PLATELET ESTIMATE NORMAL
[2019-09-07 10:21] LABS: BG BASE EXCESS -10.1 mmol/L (-2.0-2.0); BG CARBOXYHEMOGLOBIN 0.8 % (0.5-1.5); BG DEOXYHEMOGLOBIN 30.7 % (0.0-5.0); BG FRACTION INSPIRED OXYGEN 100; BG HCO3 ACT 14.9 mmol/L (22.0-26.0); BG METHEMOGLOBIN 0.3 % (0.0-1.5); BG OXYHEMOGLOBIN 68.2 % (94.0-97.0); BG PCO2 30.7 mmHg (35.0-45.0); BG PH 7.305 (7.350-7.450); BG PO2 41.3 mmHg (75.0-100.0); BG SAMPLE SITE RIGHT RADIAL; BG TIDAL VOLUME(mL) 500 mL; BG TOTAL HEMOGLOBIN 13.6 g/dL (12.0-18.0); BG VENT MODE VENT - A/C; BG VENT RATE 24 set
[2019-09-07] MEDS ORDERED: SODIUM BICARBONATE 8.4% 1 MEQ/ML 50ML SYR IV ONE (10:30)
[2019-09-07] MEDS ORDERED: VANCOMYCIN 1500MG in DEXTROSE 5% WATER 250ML IV SCH (10:30)
[2019-09-07] MEDS ORDERED: SODIUM BICARBONATE 8.4% 1 MEQ/ML 50ML SYR IV NR (11:20)
[2019-09-07 16:25] LABS: CHLORIDE 107 mEq/L (98-107)
[2019-09-08] MEDS ORDERED: EPINEPHRINE 0.1MG/ML (1:10,000) 10ML SYR ONE (13:30)
[2019-09-08] MEDS ORDERED: SODIUM BICARBONATE 8.4% MEQ/ML 50ML VIAL IV ONE (13:30)
[2019-09-08] MEDS ORDERED: CALCIUM CHLORIDE 1GM/10ML SYR IV ONE (13:30)
== END 2019-09-07 13:29 | disposition expired ==
LOC: ER 09:08 → EDBEDREQSVC 11:04 → EDBEDREQTM 11:04 → EDBEDREQ 11:04 → CVICU 12:45 → EDBEDREQ 12:48 → EDBEDREQTM 12:48 → EDBEDREQSVC 13:44 → ENRESERV 14:12 → 3WST 09-06 19:15 → MICUNO 09-07 02:25
PROVIDERS: ADMIT Internal Medicine; ATTEND Internal Medicine
PROC: 5A1D70Z Performance of Urinary Filtration, Intermittent, Less than 6 Hours Per Day (ICD-10-PCS; 2019-08-28)
PROC: 05HY33Z Insertion of Infusion Device into Upper Vein, Percutaneous Approach (ICD-10-PCS; 2019-08-29)
PROC: B54MZZA Ultrasonography of Right Upper Extremity Veins, Guidance (ICD-10-PCS; 2019-08-29)
PROC: 30233K1 Transfusion of Nonautologous Frozen Plasma into Peripheral Vein, Percutaneous Approach (ICD-10-PCS; 2019-08-30)
PROC: 5A09557 Assistance with Respiratory Ventilation, Greater than 96 Consecutive Hours, Continuous Positive Airway Pressure (ICD-10-PCS; 2019-08-31)
PROC: 0JPT3XZ Removal of Tunneled Vascular Access Device from Trunk Subcutaneous Tissue and Fascia, Percutaneous Approach (ICD-10-PCS; 2019-09-01)
PROC: 5A1D70Z Performance of Urinary Filtration, Intermittent, Less than 6 Hours Per Day (ICD-10-PCS; 2019-09-01)
PROC: 02HV33Z Insertion of Infusion Device into Superior Vena Cava, Percutaneous Approach (ICD-10-PCS; 2019-09-02)
PROC: B548ZZA Ultrasonography of Superior Vena Cava, Guidance (ICD-10-PCS; 2019-09-02)
PROC: 5A1D70Z Performance of Urinary Filtration, Intermittent, Less than 6 Hours Per Day (ICD-10-PCS; 2019-09-02)
PROC: 5A1D70Z Performance of Urinary Filtration, Intermittent, Less than 6 Hours Per Day (ICD-10-PCS; 2019-09-03)
PROC: 5A1D70Z Performance of Urinary Filtration, Intermittent, Less than 6 Hours Per Day (ICD-10-PCS; 2019-09-04)
PROC: 5A1D70Z Performance of Urinary Filtration, Intermittent, Less than 6 Hours Per Day (ICD-10-PCS; 2019-09-05)
PROC: 5A1935Z Respiratory Ventilation, Less than 24 Consecutive Hours (ICD-10-PCS; principal; 2019-09-07)
PROC: 0BH17EZ Insertion of Endotracheal Airway into Trachea, Via Natural or Artificial Opening (ICD-10-PCS; 2019-09-07)
PROC: 5A12012 Performance of Cardiac Output, Single, Manual (ICD-10-PCS; 2019-09-07)
PROC: 5A1D70Z Performance of Urinary Filtration, Intermittent, Less than 6 Hours Per Day (ICD-10-PCS; 2019-09-07)
DX: T80.211A Bloodstream infection due to central venous catheter, initial encounter (principal); I21.4 Non-ST elevation (NSTEMI) myocardial infarction; N18.6 End stage renal disease; J18.9 Pneumonia, unspecified organism; A41.01 Sepsis due to Methicillin susceptible Staphylococcus aureus; G93.41 Metabolic encephalopathy; J96.01 Acute respiratory failure with hypoxia; D68.9 Coagulation defect, unspecified; I82.C11 Acute embolism and thrombosis of right internal jugular vein; E87.1 Hypo-osmolality and hyponatremia; J44.0 Chronic obstructive pulmonary disease with (acute) lower respiratory infection; I13.2 Hypertensive heart and chronic kidney disease with heart failure and with stage 5 chronic kidney disease, or end stage renal disease; D68.61 Antiphospholipid syndrome; I50.32 Chronic diastolic (congestive) heart failure; I95.9 Hypotension, unspecified; D63.8 Anemia in other chronic diseases classified elsewhere; D75.89 Other specified diseases of blood and blood-forming organs; E03.9 Hypothyroidism, unspecified; E78.5 Hyperlipidemia, unspecified; I46.9 Cardiac arrest, cause unspecified; I48.0 Paroxysmal atrial fibrillation; I49.5 Sick sinus syndrome; T45.515A Adverse effect of anticoagulants, initial encounter; Y84.8 Other medical procedures as the cause of abnormal reaction of the patient, or of later complication, without mention of misadventure at the time of the procedure; I25.10 Atherosclerotic heart disease of native coronary artery without angina pectoris; E87.6 Hypokalemia; Z20.828 Contact with and (suspected) exposure to other viral communicable diseases; Y83.8 Other surgical procedures as the cause of abnormal reaction of the patient, or of later complication, without mention of misadventure at the time of the procedure; I44.0 Atrioventricular block, first degree; M32.9 Systemic lupus erythematosus, unspecified; R74.0 Nonspecific elevation of levels of transaminase and lactic acid dehydrogenase [LDH]; Y83.9 Surgical procedure, unspecified as the cause of abnormal reaction of the patient, or of later complication, without mention of misadventure at the time of the procedure; Z79.01 Long term (current) use of anticoagulants; Y92.89 Other specified places as the place of occurrence of the external cause; Z99.2 Dependence on renal dialysis; Z79.899 Other long term (current) drug therapy; Z79.1 Long term (current) use of non-steroidal anti-inflammatories (NSAID)
CPT/HCPCS: 36415; 36589; 36600; 71045; 71250; 72170; 76937; 78580; 80048; 80053; 80061; 80162; 80202; 80305; 81003; 82140; 82375; 82550; 82553; 82607; 82805; 82962; 83540; 83550; 83735; 84439; 84443; 84484; 85025; 85027; 85044; 86850; 86900; 86927; 87070; 87077; 87106; 92950; 93005; 93306; 93880; 93970; 94002; 94003; 94640; 94660; 97161; 97530; 99291; C1725; C1752; C1769; C9113; J0330; J0690; J1160; J1650; J1940; J2060; J2370; J2543; J2920; J3370; J3430; J3480; J3490; J7030; J7060; P9017; P9041; U0003-CS